=== PATIENT | male | born 1990 | race Caucasian/White ===

== ENCOUNTER 2016-09-15 21:25 | Emergency (ER) | payer MEDICAID ==
[2016-09-15 23:38] VITALS: BP 138/85
== END 2016-09-15 23:38 | disposition home or self-care (01) ==
LOC: ED 21:25
DX: S63.601A Unspecified sprain of right thumb, initial encounter (principal); W19.XXXA Unspecified fall, initial encounter; Y93.89 Activity, other specified; Y92.89 Other specified places as the place of occurrence of the external cause; Y99.8 Other external cause status